=== PATIENT | female | born 1950 | race Caucasian/White ===

== ENCOUNTER 2024-03-05 14:46 | Inpatient (IN) ==
[2024-03-05] MEDS ORDERED: IOPAMIDOL 100 ML BOTTLE IV ONE (14:47)
[2024-03-05 15:21] LABS: POC Calcium, Ionized 1.25 (1.16-1.32); POC Creatinine 0.7 (0.6-1.2); POC Potassium 4.2 (3.3-5.1)
[2024-03-05] MEDS: ONDANSETRON 4 MG/2 ML VIAL IV ONE (15:27)
[2024-03-05] MEDS: morphine 4 MG/ML VIAL IV ONE (15:27)
[2024-03-05 15:39] LABS: Basophils # (Auto) 0.07 K/mcL (0.00-0.30); Basophils % (Auto) 0.6 % (0.0-2.0); Eosinophils # (Auto) 0.13 K/mcL (0.00-0.70); Eosinophils % (Auto) 1.1 % (0.0-7.0); Hematocrit 48.7 % (34.1-44.9); Hemoglobin 16.2 g/dL (11.2-15.7); Lymphocytes # (Auto) 2.25 K/mcL (1.50-4.80); Lymphocytes % (Auto) 18.4 % (15.5-49.0); Mean Cell Volume 95.3 fL (80.0-100.0); Mean Corpuscular HGB Conc 33.3 g/dL (31.0-36.0); Mean Platelet Volume 9.9 fL (8.8-12.5); Monocytes # (Auto) 0.79 K/mcL (0.10-0.90); Monocytes % (Auto) 6.4 % (1.0-12.0); Neutrophils % (Auto) 73.3 % (38.0-78.0); Platelet Count 475 K/mcL (140-440); RBC 5.11 M/mcL (3.59-5.38); Red Cell Distribution Width 12.6 % (11.5-14.5); WBC 12.3 K/mcL (4.5-11.0)
[2024-03-05 16:03] LABS: ALT/SGPT 22 U/L (<40); AST/SGOT 27 U/L (<32); Albumin 4.6 gm/dL (3.2-5.2); Albumin/Globulin Ratio 1.5 (1.0-2.3); Alkaline Phosphatase 133 U/L (39-117); Bilirubin,Total 0.5 mg/dL (0.1-1.0); Blood Urea Nitrogen 10 mg/dL (8-23); Carbon Dioxide 24 mmol/L (22-30); Chloride 98 mmol/L (96-108); Glomerular Filtration Rate 90; Glucose 115 mg/dL (70-105); Potassium 4.3 mmol/L (3.3-5.1); Sodium 137 mmol/L (133-145)
[2024-03-05 17:09] LABS: Appearance,Urine Clear (Clear); Bilirubin,Urine Negative (Negative); Color,Urine Yellow; Glucose,Urine (UA) Negative (Negative); Ketones,Urine 15 mg/dL (Negative); Leukocyte Esterase,Urine Negative /uL (Negative); Nitrate,Urine Negative (Negative); PH,Urine 6.5 (5.0-9.0); Protein,Urine Negative (Negative); Specific Gravity,Urine <= 1.005 (1.000-1.035); Urine Blood Negative ery/mcL (Negative); Urobilinogen,Urine Normal
[2024-03-05] MEDS: LIDOCAINE 2% URO-JET 10 ML JEL.PF.APP UR ONE (17:41)
[2024-03-05] MEDS ORDERED: ONDANSETRON 4 MG/2 ML VIAL IV PRN (19:15)
[2024-03-05 19:57] LABS: Blood Urea Nitrogen 10 mg/dL (8-23); Calcium 9.8 mg/dL (8.6-10.4); Carbon Dioxide 25 mmol/L (22-30); Chloride 100 mmol/L (96-108); Glomerular Filtration Rate 90; Glucose 119 mg/dL (70-105); Potassium 4.4 mmol/L (3.3-5.1); Sodium 137 mmol/L (133-145)
[2024-03-05] MEDS: HYDROmorphone 0.5 MG/0.5 ML SYRINGE IV PRN (20:21)
[2024-03-05] MEDS: DEXTROSE 5%-LR 1,000 ML IV SCH (20:21)
[2024-03-06 06:28] LABS: Blood Urea Nitrogen 8 mg/dL (8-23); Carbon Dioxide 25 mmol/L (22-30); Chloride 105 mmol/L (96-108); Glomerular Filtration Rate 90; Glucose 126 mg/dL (70-105); Potassium 4.4 mmol/L (3.3-5.1); Sodium 139 mmol/L (133-145)
[2024-03-06 06:32] LABS: Hemoglobin 12.5 g/dL (11.2-15.7); Mean Corpuscular HGB Conc 32.1 g/dL (31.0-36.0); Mean Platelet Volume 9.8 fL (8.8-12.5); Platelet Count 342 K/mcL (140-440); RBC 3.94 M/mcL (3.59-5.38); Red Cell Distribution Width 12.9 % (11.5-14.5); WBC 6.2 K/mcL (4.5-11.0)
[2024-03-06] MEDS: LEVOTHYROXINE 100 MCG VIAL IV SCH (07:28)
[2024-03-06] MEDS: PANTOPRAZOLE 40 MG VIAL IV SCH (07:31)
[2024-03-07 06:44] LABS: Blood Urea Nitrogen 5 mg/dL (8-23); Calcium 8.9 mg/dL (8.6-10.4); Carbon Dioxide 27 mmol/L (22-30); Chloride 108 mmol/L (96-108); Glomerular Filtration Rate 96; Glucose 118 mg/dL (70-105); Sodium 143 mmol/L (133-145)
[2024-03-07 06:45] LABS: Hematocrit 38.2 % (34.1-44.9); Hemoglobin 12.4 g/dL (11.2-15.7); Mean Cell Volume 98.2 fL (80.0-100.0); Mean Corpuscular HGB Conc 32.5 g/dL (31.0-36.0); Platelet Count 316 K/mcL (140-440); RBC 3.89 M/mcL (3.59-5.38); Red Cell Distribution Width 12.7 % (11.5-14.5); WBC 6.3 K/mcL (4.5-11.0)
[2024-03-07] MEDS: LORazepam 2 MG/ML VIAL IV PRN (16:55)
[2024-03-07] MEDS: DEXTROSE 5%-LR 1,000 ML IV SCH (22:45)
[2024-03-08] MEDS: DEXTROSE 5%-LR 1,000 ML IV SCH (19:43)
== END 2024-03-09 12:10 | disposition home or self-care (01) | DRG 390 ==
LOC: ED 14:46 → MEDSUR 20:00
PROVIDERS: ADMIT Surgery Surgical Critical Care; ATTEND Surgery Surgical Critical Care